=== PATIENT | female | born 1955 | race Caucasian/White ===

== ENCOUNTER 2020-06-22 10:56 | Emergency (ER) | payer OTHER ==
[2020-06-22 11:06] VITALS: BP 152/100; PULSE 79; TEMP 98.5; BMI 22.8
[2020-06-22] MEDS ORDERED: ACETAMINOPHEN 325 MG TABLET (FP) PO ONE (11:23)
[2020-06-22] MEDS ORDERED: ACETAMINOPHEN 325 MG TABLET (FP) ONE (11:25)
== END 2020-06-22 12:05 | disposition home or self-care (01) ==
LOC: FER 10:56
DX: S93.504A Unspecified sprain of right lesser toe(s), initial encounter (principal)
CPT/HCPCS: 73630-TC-RT-FY; 99283-25

== ENCOUNTER 2022-08-04 04:37 | Day surgery (SDC) | payer OTHER ==
[2022-07-31 13:33] VITALS: BMI 23.9
[2022-08-04 11:10] VITALS: BP 139/63; PULSE 59; RESP 16; TEMP 98.8
== END 2022-08-04 11:07 | disposition home or self-care (01) ==
LOC: JASU-ENDO 04:37
PROVIDERS: ATTEND Internal Medicine Gastroenterology
PROC: 0DB68ZX Excision of Stomach, Via Natural or Artificial Opening Endoscopic, Diagnostic (ICD-10-PCS; 2022-08-04)
PROC: 0DB78ZX Excision of Stomach, Pylorus, Via Natural or Artificial Opening Endoscopic, Diagnostic (ICD-10-PCS; 2022-08-04)
PROC: 0DB98ZX Excision of Duodenum, Via Natural or Artificial Opening Endoscopic, Diagnostic (ICD-10-PCS; 2022-08-04)
PROC: 0DBL8ZX Excision of Transverse Colon, Via Natural or Artificial Opening Endoscopic, Diagnostic (ICD-10-PCS; principal; 2022-08-04 10:00)
DX: Z12.11 Encounter for screening for malignant neoplasm of colon (principal); K63.5 Polyp of colon; K64.8 Other hemorrhoids; K57.30 Diverticulosis of large intestine without perforation or abscess without bleeding; K29.50 Unspecified chronic gastritis without bleeding; K21.00 Gastro-esophageal reflux disease with esophagitis, without bleeding; K44.9 Diaphragmatic hernia without obstruction or gangrene; K31.7 Polyp of stomach and duodenum; Z86.010 Personal history of colon polyps; Z80.0 Family history of malignant neoplasm of digestive organs
CPT/HCPCS: 88305-TC; 88342-TC